=== PATIENT | female | born 1980 | race Caucasian/White ===

== ENCOUNTER 2019-09-22 17:41 | Emergency (ER) | payer OTHER ==
[~2019-09-22] VITALS: Ht 157.4 cm; Wt 68.0 kg
[2019-09-22 17:43] VITALS: BP 124/69
[2019-09-22] MEDS ORDERED: Motrin,Rufen800 MG PO (20:22)
== END 2019-09-22 20:26 | disposition home or self-care (01) ==
LOC: ED 17:41
DX: S80.02XA Contusion of left knee, initial encounter (principal); F17.200 Nicotine dependence, unspecified, uncomplicated; Z88.6 Allergy status to analgesic agent; Z91.040 Latex allergy status; Y08.89XA Assault by other specified means, initial encounter; Y93.89 Activity, other specified; Y92.89 Other specified places as the place of occurrence of the external cause; Y99.8 Other external cause status

== ENCOUNTER 2020-10-12 15:05 | Emergency (ER) | payer BC ==
[~2020-10-12 15:05] MED LIST: Motrin,Rufen800 MG PO
[2020-10-12 15:56] VITALS: BP 119/64
[2020-10-12] MEDS ORDERED: SEPTDS PO (17:55)
[2020-10-12] MEDS ORDERED: TYLENOL325 M1 PO (17:55)
[2020-10-12] MEDS ORDERED: NAPROXEN250 MG PO (17:55)
== END 2020-10-12 17:59 | disposition home or self-care (01) ==
LOC: ED 15:05
DX: N75.0 Cyst of Bartholin's gland (principal); Z88.6 Allergy status to analgesic agent

== ENCOUNTER → 2021-12-08 | Outpatient (CLI) | payer BC, OTHER ==
[~2021-12-08] MED LIST changes: +NAPROXEN250 MG PO; +SEPTDS PO; +TYLENOL325 M1 PO
== END | disposition home or self-care (01) ==
LOC: MAMMO 13:00
PROVIDERS: ATTEND Nurse Practitioner Women's Health
DX: Z12.31 Encounter for screening mammogram for malignant neoplasm of breast (principal); R59.0 Localized enlarged lymph nodes